=== PATIENT | female | born 1950 | race Caucasian/White ===

== ENCOUNTER 2023-08-02 06:07 | Emergency (ER) | payer MEDICARE ==
[2023-08-02 06:29] VITALS: TEMP 96.3
--- NOTE | 2023-08-02 06:37 | ERPHSYRPT ---
- History of Present Illness Historian: patient, family Exam Limitations: no limitations Patient Subjective Stated Complaint: abd pain Triage Nursing Assessment: patient states that she started having diarrhea this past wednesday. she is now also experiencing vomiting and light headedness Timing/Duration: day(s) (3), worse Quality: sharpness, stabbing Abdominal Pain Onset Location: other (Right side of her abdomen) Pain Radiation: no radiation Severity of Pain-Max: mild Severity of Pain-Current: mild Modifying Factors: Improves With: vomiting, other (Diarrhea, lightheadedness) Associated Symptoms: diarrhea, nausea, vomiting, other (Lightheadedness) Previous symptoms: no prior history, no recent treatment Hx Tetanus, Diphtheria Vaccination/Date Given: Yes Hx Influenza Vaccination/Date Given: Yes Hx Pneumococcal Vaccination/Date Given: Yes Immunizations Up to Date: Yes <JOSELYN NO - Last Filed: 08/02/23 06:42> <OCBY CRUMP - Last Filed: 08/02/23 09:44> - History of Present Illness Time Seen by Provider: 08/02/23 06:30 Physician History: This is an obese 73-year-old white female patient who presents by private vehicle with symptoms of vomiting diarrhea and lightheadedness. She also has right-sided abdominal pain. Patient states that she has no known direct exposure to individuals with similar symptoms. She became concerned when she vomited today, was lightheaded and had pain in the right side of her abdomen. Patient's appendix is still in place. She has had a cholecystectomy and a hysterectomy in the past. She is also had abdominal wall hernia repair. Patient did not receive any relief after taking 2 Imodium, a dose of Pepto- Bismol and a dose of Gas-X. Patient has a history of hypertension, diabetes, hypothyroidism and gastroesophageal reflux disease. She states that she has no chest pain and she has no shortness of breath. Patient does not want anything for controlling her pain at this time. (JOSELYN NO) Allergies/Adverse Reactions: No Known Drug Allergies Allergy (Unverified 08/02/23 06:29) Home Medications: Lansoprazole [Prevacid] 30 mg PO DAILY 05/01/13 [History] Levothyroxine Sodium 150 Mcg [Synthroid 150 Mcg] 150 mcg PO DAILY 05/01/13 [History] Linagliptin [Tradjenta] 5 mg PO DAILY 05/01/13 [History] Losartan/Hydrochlorothiazide [Losartan-Hctz 50-12.5 mg Tab] 1 tab PO DAILY 05/01/13 [History] Metformin HCl 500 mg [Glucophage 500 MG] 500 mg PO BID 05/01/13 [History] Nebivolol HCl [Bystolic] 20 mg PO DAILY 05/01/13 [History] Trazodone HCl [Desyrel] 100 mg PO HS 05/01/13 [History] Travel Risk - International Travel Have you traveled outside of the country in past 3 weeks: No - Emerging Infectious Disease Symptoms: Diarrhea, Vomitting <JOSELYN NO - Last Filed: 08/02/23 06:42> - Review of Systems Constitutional: No Symptoms Eyes: No Symptoms Ears, Nose, & Throat: No Symptoms Respiratory: No Symptoms Cardiac: No Symptoms Abdominal/Gastrointestinal: Abdominal Pain, Nausea, Vomiting, Diarrhea, Appetite Changes Genitourinary Symptoms: No Symptoms Musculoskeletal: No Symptoms Skin: No Symptoms Neurological: Other (Right headedness) Psychological: No Symptoms Endocrine: No Symptoms Hematologic/Lymphatic: No Symptoms Immunological/Allergic: No Symptoms All Other Systems: Reviewed and Negative <JOSELYN NO - Last Filed: 08/02/23 06:42> - Past Medical History Pertinent Past Medical History: Yes Neurological History: No Pertinent History ENT History: No Pertinent History Cardiac History: High Cholesterol, Hypertension Respiratory History: Sleep Apnea Endocrine Medical History: Diabetes Type II, Hypothyroidism Musculoskeletal History: No Pertinent History GI Medical History: No Pertinent History History: No Pertinent History Psycho-Social History: No Pertinent History Female Reproductive Disorders: No Pertinent History - Past Surgical History Past Surgical History: Yes Neuro Surgical History: No Pertinent History Cardiac: Cardiac Catheterization Respiratory: No Pertinent History Gastrointestinal: Cholecystectomy, Hernia Repair Genitourinary: No Pertinent History Musculoskeletal: No Pertinent History Female Surgical History: Hysterectomy Other Surgical History: THYROIDECTOMY - Social History Smoking Status: Never smoker Exposure to second hand smoke: No Drug Use: none Patient Lives Alone: Yes <JOSELYN NO - Last Filed: 08/02/23 06:42> - Physical Exam General Appearance: no apparent distress, alert, anxiety, obese Eye Exam: PERRL/EOMI, eyes nml inspection Ears, Nose, Throat Exam: normal ENT inspection, moist mucous membranes Neck Exam: normal inspection, non-tender, supple, full range of motion Respiratory Exam: normal breath sounds, lungs clear, airway intact, No chest tenderness, No respiratory distress Cardiovascular Exam: regular rate/rhythm, normal heart sounds, normal peripheral pulses Gastrointestinal/Abdomen Exam: soft, normal bowel sounds, tenderness (Mild right side to palpation), guarding (Right side to palpation), No rebound Pelvic Exam: not done Rectal Exam: not done Back Exam: normal inspection, normal range of motion, No CVA tenderness, No vertebral tenderness Extremity Exam: normal inspection, normal range of motion, pelvis stable Neurologic Exam: alert, oriented x 3, cooperative, fuse maker II-XII nml as tested, nml cerebellar function, nml station & gait, sensation nml Skin Exam: normal color, warm, dry Lymphatic Exam: No adenopathy SpO2 Interpretation: borderline oxygenation SpO2: 93 O2 Delivery: Room Air <JOSELYN NO - Last Filed: 08/02/23 06:42> - Nursing Vital Signs Nursing Vital Signs: Initial Vital Signs Temperature 96.3 F 08/02/23 06:20 Pulse Rate 60 08/02/23 06:20 Respiratory Rate 18 08/02/23 06:20 Blood Pressure 160/70 08/02/23 06:20 O2 Sat by Pulse Oximetry 93 L 08/02/23 06:20 Pain Scale Pain Intensity 0 - Course Nursing assessment & vital signs reviewed: Yes <JOSELYN NO - Last Filed: 08/02/23 06:42> Ordered Tests: Active Orders 24 hr Category Date Time Status IV Insertion STAT Care 08/02/23 06:37 Active ABDOMEN AND PELVIS W/0 CONTRAS [CT] Stat Exams 08/02/23 06:37 Completed AMYLASE Stat Lab 08/02/23 06:45 Completed CBC W DIFF Stat Lab 08/02/23 06:45 Completed CMP Stat Lab 08/02/23 06:45 Completed LIPASE Stat Lab 08/02/23 06:45 Completed Lactic Acid Stat Lab 08/02/23 06:58 Completed MONO SCREEN Stat Lab 08/02/23 06:45 Completed UA W/RFX UR CULTURE Stat Lab 08/02/23 08:14 Completed Medication Summary Discontinued Medications Generic Name Dose Route Start Last Admin Trade Name Freq PRN Reason Stop Dose Admin Sodium Chloride 1,000 mls @ 999 mls/hr 08/02/23 06:37 08/02/23 09:21 Sodium Chloride 0.9% 1000 Ml IV 08/02/23 07:37 Infused .Q1H1M STA Infusion Sodium Chloride Confirm 08/02/23 06:44 Sodium Chloride 0.9% 1000 Ml Administered 08/02/23 06:45 Dose 1,000 mls @ ud .ROUTE .STK-MED ONE Ondansetron HCl 4 mg 08/02/23 06:37 08/02/23 06:49 Ondansetron Hcl 4 Mg/2 Ml Vial IV 08/02/23 06:38 4 mg STAT ONE Administration Ondansetron HCl Confirm 08/02/23 06:44 Ondansetron Hcl 4 Mg/2 Ml Vial Administered 08/02/23 06:45 Dose 4 mg .ROUTE .STK-MED ONE Pantoprazole Sodium 40 mg 08/02/23 06:37 08/02/23 06:49 Pantoprazole 40 Mg Vial IV 08/02/23 06:38 40 mg STAT ONE Administration Pantoprazole Sodium Confirm 08/02/23 06:44 Pantoprazole 40 Mg Vial Administered 08/02/23 06:45 Dose 40 mg IV .STK-MED ONE Lab/Rad Data: Laboratory Result Diagrams 08/02/23 06:45 08/02/23 06:45 Laboratory Results 08/02/23 08/02/23 08/02/23 Range/Units 08:40 08:14 06:58 WBC (3.98-10.04) x10^3/uL RBC (3.93-5.22) x10^6/uL Hgb (11.2-15.7) g/dL Hct (34.1-44.9) % MCV (79.4-94.8) fL MCH (25.6-32.2) pg MCHC (32.2-35.5) g/dL RDW (11.7-14.4) % Plt Count (182-369) x10^3/uL MPV (9.4-12.3) fL Gran % (34.0-71.1) % Immature Gran % (Auto) (0.001-0.429) % Nucleat RBC Rel Count (0.00-0.2) % Eos # (Auto) (0.04-0.36) x10^3/uL Immature Gran # (Auto) (0.001-0.031) x10^3u/L Absolute Lymphs (auto) (1.18-3.74) x10^3/uL Absolute Monos (auto) (0.24-0.86) x10^3/uL Absolute Nucleated RBC (0.00-0.012) x10^3u/L Lymphocytes % (19.3-51.7) % Monocytes % (4.7-12.5) % Eosinophils % (0.7-5.8) % Basophils % (0.1-1.2) % Absolute Granulocytes (1.56-6.13) x10^3/uL Basophils # (0.01-0.08) x10^3/uL Sodium (135-145) mmol/L Potassium (3.5-5.1) mmol/L Chloride (98-107) mmol/L Carbon Dioxide (22-30) mmol/L Anion Gap (5-15) MEQ/L BUN (7-17) mg/dL Creatinine (0.52-1.04) mg/dL Estimated GFR ML/MIN Glucose (74-106) mg/dL Lactic Acid 1.5 (0.4-2.0) Calcium (8.4-10.2) mg/dL Total Bilirubin (0.2-1.3) mg/dL AST (14-36) U/L ALT (0-35) U/L Alkaline Phosphatase (38-126) U/L Serum Total Protein (6.3-8.2) g/dL Albumin (3.5-5.0) g/dL Amylase (30-110) U/L Lipase (23-300) U/L Urine Color Yellow (Yellow) Urine Appearance Clear (Clear) Urine pH 5.5 (4.6-8.0) Ur Specific [place] 1.015 (1.005-1.030) Urine Protein 30 (Negative) Urine Glucose (UA) >=1000 A (Negative) mg/dL Urine Ketones Negative (Negative) Urine Blood Negative (Negative) Urine Nitrite Negative (Negative) Urine Bilirubin Negative (Negative) Urine Urobilinogen 1.0 A (0.2) mg/dL Ur Leukocyte Esterase Negative (Negative) U Hyaline Cast (Auto) NONE SEEN (0-2) /LPF Urine Microscopic RBC 0-2 (0-5) /HPF Urine Microscopic WBC 0-2 (0-5) /HPF Ur Epithelial Cells None Seen (None Seen) /HPF Urine Bacteria None Seen (None Seen) /HPF Urine Culture Reflexed NO (NO) Monoscreen (NEGATIVE) Influenza Type A Ag NEGATIVE (NEGATIVE) Influenza Type B Ag NEGATIVE (NEGATIVE) RSV (PCR) NEGATIVE (NEGATIVE) SARS-CoV-2 (PCR) NEGATIVE (NEGATIVE) 08/02/23 08/02/23 08/02/23 Range/Units 06:50 06:45 06:45 WBC (3.98-10.04) x10^3/uL RBC (3.93-5.22) x10^6/uL Hgb (11.2-15.7) g/dL Hct (34.1-44.9) % MCV (79.4-94.8) fL MCH (25.6-32.2) pg MCHC (32.2-35.5) g/dL RDW (11.7-14.4) % Plt Count (182-369) x10^3/uL MPV (9.4-12.3) fL Gran % (34.0-71.1) % Immature Gran % (Auto) (0.001-0.429) % Nucleat RBC Rel Count (0.00-0.2) % Eos # (Auto) (0.04-0.36) x10^3/uL Immature Gran # (Auto) (0.001-0.031) x10^3u/L Absolute Lymphs (auto) (1.18-3.74) x10^3/uL Absolute Monos (auto) (0.24-0.86) x10^3/uL Absolute Nucleated RBC (0.00-0.012) x10^3u/L Lymphocytes % (19.3-51.7) % Monocytes % (4.7-12.5) % Eosinophils % (0.7-5.8) % Basophils % (0.1-1.2) % Absolute Granulocytes (1.56-6.13) x10^3/uL Basophils # (0.01-0.08) x10^3/uL Sodium 142 (135-145) mmol/L Potassium 3.1 L (3.5-5.1) mmol/L Chloride 106 (98-107) mmol/L Carbon Dioxide 21 L (22-30) mmol/L Anion Gap 17.8 H (5-15) MEQ/L BUN 14 (7-17) mg/dL Creatinine 0.66 (0.52-1.04) mg/dL Estimated GFR 91.4 ML/MIN Glucose 144 H (74-106) mg/dL Lactic Acid (0.4-2.0) Calcium 9.4 (8.4-10.2) mg/dL Total Bilirubin 1.40 H (0.2-1.3) mg/dL AST 41 H (14-36) U/L ALT 34 (0-35) U/L Alkaline Phosphatase 82 (38-126) U/L Serum Total Protein 7.9 (6.3-8.2) g/dL Albumin 4.5 (3.5-5.0) g/dL Amylase 240 H (30-110) U/L Lipase 2289 H (23-300) U/L Urine Color (Yellow) Urine Appearance (Clear) Urine pH (4.6-8.0) Ur Specific [place] (1.005-1.030) Urine Protein (Negative) Urine Glucose (UA) (Negative) mg/dL Urine Ketones (Negative) Urine Blood (Negative) Urine Nitrite (Negative) Urine Bilirubin (Negative) Urine Urobilinogen (0.2) mg/dL Ur Leukocyte Esterase (Negative) U Hyaline Cast (Auto) (0-2) /LPF Urine Microscopic RBC (0-5) /HPF Urine Microscopic WBC (0-5) /HPF Ur Epithelial Cells (None Seen) /HPF Urine Bacteria (None Seen) /HPF Urine Culture Reflexed (NO) Monoscreen NEGATIVE (NEGATIVE) Influenza Type A Ag NEGATIVE (NEGATIVE) Influenza Type B Ag NEGATIVE (NEGATIVE) RSV (PCR) NEGATIVE (NEGATIVE) SARS-CoV-2 (PCR) NEGATIVE (NEGATIVE) 08/02/23 Range/Units 06:45 WBC 10.2 H (3.98-10.04) x10^3/uL RBC 5.72 H (3.93-5.22) x10^6/uL Hgb 15.2 (11.2-15.7) g/dL Hct 46.6 H (34.1-44.9) % MCV 81.5 (79.4-94.8) fL MCH 26.6 (25.6-32.2) pg MCHC 32.6 (32.2-35.5) g/dL RDW 14.5 H (11.7-14.4) % Plt Count 276 (182-369) x10^3/uL MPV 9.6 (9.4-12.3) fL Gran % 84.1 H (34.0-71.1) % Immature Gran % (Auto) 0.4 (0.001-0.429) % Nucleat RBC Rel Count 0.0 (0.00-0.2) % Eos # (Auto) 0.07 (0.04-0.36) x10^3/uL Immature Gran # (Auto) 0.04 H (0.001-0.031) x10^3u/L Absolute Lymphs (auto) 1.01 L (1.18-3.74) x10^3/uL Absolute Monos (auto) 0.48 (0.24-0.86) x10^3/uL Absolute Nucleated RBC 0.00 (0.00-0.012) x10^3u/L Lymphocytes % 9.9 L (19.3-51.7) % Monocytes % 4.7 (4.7-12.5) % Eosinophils % 0.7 (0.7-5.8) % Basophils % 0.2 (0.1-1.2) % Absolute Granulocytes 8.55 H (1.56-6.13) x10^3/uL Basophils # 0.02 (0.01-0.08) x10^3/uL Sodium (135-145) mmol/L Potassium (3.5-5.1) mmol/L Chloride (98-107) mmol/L Carbon Dioxide (22-30) mmol/L Anion Gap (5-15) MEQ/L BUN (7-17) mg/dL Creatinine (0.52-1.04) mg/dL Estimated GFR ML/MIN Glucose (74-106) mg/dL Lactic Acid (0.4-2.0) Calcium (8.4-10.2) mg/dL Total Bilirubin (0.2-1.3) mg/dL AST (14-36) U/L ALT (0-35) U/L Alkaline Phosphatase (38-126) U/L Serum Total Protein (6.3-8.2) g/dL Albumin (3.5-5.0) g/dL Amylase (30-110) U/L Lipase (23-300) U/L Urine Color (Yellow) Urine Appearance (Clear) Urine pH (4.6-8.0) Ur Specific [place] (1.005-1.030) Urine Protein (Negative) Urine Glucose (UA) (Negative) mg/dL Urine Ketones (Negative) Urine Blood (Negative) Urine Nitrite (Negative) Urine Bilirubin (Negative) Urine Urobilinogen (0.2) mg/dL Ur Leukocyte Esterase (Negative) U Hyaline Cast (Auto) (0-2) /LPF Urine Microscopic RBC (0-5) /HPF Urine Microscopic WBC (0-5) /HPF Ur Epithelial Cells (None Seen) /HPF Urine Bacteria (None Seen) /HPF Urine Culture Reflexed (NO) Monoscreen (NEGATIVE) Influenza Type A Ag (NEGATIVE) Influenza Type B Ag (NEGATIVE) RSV (PCR) (NEGATIVE) SARS-CoV-2 (PCR) (NEGATIVE) <JOSELYN NO - Last Filed: 08/02/23 06:42> - Progress Discussed with : Other Counseled pt/family regarding: lab results, diagnosis, rad results <COBY CRUMP - Last Filed: 08/02/23 09:44> - Progress Progress Note: 08/02/23 06:45 My medical decision making and the assignment of moderate complexity of this patient's medical issue today is based on review of the patient's past medical history, review of the patient's medication list, review of patient drug allergy list, history present illness and physical findings on examination. The workup in this patient includes placement of intravenous line, infusion of normal saline solution, infusion of Zofran, infusion of Protonix, CBC, CMP, amylase, lipase, urinalysis, CT scan of the abdomen pelvis without contrast, viral studies and monotest. The differential diagnosis includes but is not limited to viral illness, pancreatitis, colitis, diverticulitis, acute appendicitis I am transferring care of this patient to Dr. Crump at shift change. He will follow-up with the pending studies and make final disposition. (JOSELYN NO) 08/02/23 08:07 Assumed care at shift change from Dr. No Patient who has been having diarrhea x 3 days and nausea/vomiting since last night. Patient has right lateral abdominal pain which she rates 4 out of 10 and described as sharp. Past medical history includes cholecystectomy, total abdominal hysterectomy/bilateral salpingo-oophorectomy, diabetes mellitus, hypertension, and hypothyroidism. Patient has elevation of her pancreatic enzymes and CT of her abdomen pelvis is pending at shift change.Workup completed, patient has a small bowel obstruction and pancreatitis. Spoke with, Dr. Petit who wants patient transferred. Patient accepted by Dr. Correa, hospitalist at [facility] in [place]. Dr. Correa okay with not putting in NG tube at this time. 08/02/23 09:15 08/02/23 09:42 (COBY CRUMP) Medical Desision Making - Discussion of managment Care discussed with:: hospitalist Reviewed:: Need for additional workup - Diagnostic Testing Diagnostic test were ordered, analyzed, and reviewed by me: Yes Radiological Interpretation: Discussed w/ radiologist - Risk of complications The pt has a high risk of morbidity or mortality based on: Decision regarding hospitilization or escalation of hosp level of care <COBY CRUMP - Last Filed: 08/02/23 09:44> - Departure Departure Disposition: Home Critical Care Time: No <JOSELYN NO - Last Filed: 08/02/23 06:42> - Departure Departure Disposition: Transfer <COBY CRUMP - Last Filed: 08/02/23 09:44> - Departure Clinical Impression: Abdominal pain, Vomiting, Diarrhea, Pancreatitis, Small bowel obstruction Condition: Stable Referrals: DIA HESTER [Primary Care Provider] - Follow up/PCP as directed
[2023-08-02] MEDS ORDERED: Sodium Chloride 0.9% 1000 ML 1,000 ML ONE (06:44)
[2023-08-02] MEDS ORDERED: Zofran 4 MG/2 ML VIAL ONE (06:44)
[2023-08-02] MEDS ORDERED: PROTONIX 40 MG IV IV ONE (06:44)
[2023-08-02] MEDS: Sodium Chloride 0.9% 1000 ML 1,000 ML IV STA (06:49)
[2023-08-02] MEDS: Zofran 4 MG/2 ML VIAL IV ONE (06:49)
[2023-08-02] MEDS: PROTONIX 40 MG IV IV ONE (06:49)
[2023-08-02 06:54] LABS: Absolute Neutrophil Ct (ANC) 8.55 x10^3/uL (1.56-6.13); BASOPHIL % 0.2 % (0.1-1.2); Basophil (Absolute #) 0.02 x10^3/uL (0.01-0.08); Eosinophil % 0.7 % (0.7-5.8); Eosinophil (Absolute #) 0.07 x10^3/uL (0.04-0.36); Hematocrit 46.6 % (34.1-44.9); Hemoglobin 15.2 g/dL (11.2-15.7); IMMATURE GRAN # 0.04 x10^3u/L (0.001-0.031); IMMATURE GRAN % 0.4 % (0.001-0.429); Lymphocyte (Absolute #) 1.01 x10^3/uL (1.18-3.74); Lymphocytes % 9.9 % (19.3-51.7); Mean Cell Volume 81.5 fL (79.4-94.8); Mean Corpuscular Hemoglobin 26.6 pg (25.6-32.2); Mean Corpuscular Hgb Concent. 32.6 g/dL (32.2-35.5); Mean Platelet Volume 9.6 fL (9.4-12.3); Monocyte (Absolute #) 0.48 x10^3/uL (0.24-0.86); Monocytes % 4.7 % (4.7-12.5); Neutrophil % 84.1 % (34.0-71.1); Platelet Count 276 x10^3/uL (182-369); Red Blood Count 5.72 x10^6/uL (3.93-5.22); Red Cell Distribution Width 14.5 % (11.7-14.4); White Blood Count 10.2 x10^3/uL (3.98-10.04)
[2023-08-02 07:10] LABS: ALBUMIN 4.5 g/dL (3.5-5.0); ANION GAP 17.8 MEQ/L (5-15); BILIRUBIN,TOTAL 1.4 mg/dL (0.2-1.3); Calcium 9.4 mg/dL (8.4-10.2); Creatinine 1 0.66 mg/dL (0.52-1.04); EST GLOMERULAR FILTRATION RATE 91.4 ML/MIN; Potassium 3.1 mmol/L (3.5-5.1); Total Protein 7.9 g/dL (6.3-8.2)
[2023-08-02 07:18] VITALS: PULSE 54; RESP 16
[2023-08-02 07:30] LABS: INFLUENZA A NEGATIVE (NEGATIVE); INFLUENZA B NEGATIVE (NEGATIVE); RESPIRATORY SYNCTIAL VIRUS NEGATIVE (NEGATIVE); SARS-CoV-2 Xpert Express NEGATIVE (NEGATIVE)
[2023-08-02 08:27] LABS: Appearance Clear (Clear); Bacteria None Seen /HPF (None Seen); Bilirubin Negative (Negative); Blood Negative (Negative); Epithelial Cells None Seen /HPF (None Seen); Glucose, Urine >=1000 mg/dL (Negative); Hyaline Casts NONE SEEN /LPF (0-2); Ketones Negative (Negative); Leukocyte Esterase Negative (Negative); Nitrite Negative (Negative); Ph 5.5 (4.6-8.0); Protein,Urine Dip 30 (Negative); RBC 0-2 /HPF (0-5); Specific Gravity 1.015 (1.005-1.030); WBC 0-2 /HPF (0-5)
[2023-08-02 08:37] LABS: ADD URINE CULTURE? NO (NO)
--- NOTE | 2023-08-02 08:57 | XRAY ---
Indication: Nausea, vomiting, and diarrhea. Multiple contiguous axial images obtained through the abdomen and pelvis without contrast. Impression: None Lung bases clear. Heart not enlarged. Small hiatal hernia with small gastroesophageal reflux. Stomach is mildly fluid distended. Right mid abdomen demonstrates air distended small bowel loop up to 7.5 cm diameter with tapering. There is distal colonic bowel gas. Findings favor partial small bowel obstruction. Mild fluid distended colon throughout including rectum with fluid leveling favoring diarrhea. No free fluid/air. [place] ventral umbilical hernia up to 6.5 cm in diameter with a loop of small bowel herniating. No obstruction/incarceration. Previous cholecystectomy and hysterectomy. Remaining liver, pancreas, spleen, adrenal glands, kidneys, ureters, and bladder are unremarkable for noncontrast exam. Mild scattered aortoiliac calcifications without AAA. Osseous structures intact with osteopenia, moderate degenerative changes throughout the thoracolumbar spine, and moderate degenerative changes both hips. Impression: 1. Abnormal distended small bowel loop right midabdomen with paucity distal bowel gas favoring partial small bowel obstruction. 2. Diffuse colonic diarrhea. 3. Small hiatal hernia with GERD. 4. Chronic findings including arteriosclerotic disease and chronic bony findings.
[2023-08-02 09:15] VITALS: BP 122/64; O2SAT 93
[2023-08-02 09:23] LABS: INFLUENZA A NEGATIVE (NEGATIVE); INFLUENZA B NEGATIVE (NEGATIVE); RESPIRATORY SYNCTIAL VIRUS NEGATIVE (NEGATIVE); SARS-CoV-2 Xpert Express NEGATIVE (NEGATIVE)
== END 2023-08-02 10:46 | disposition short-term general hospital (02) ==
LOC: ED 06:07
DX: K56.609 Unspecified intestinal obstruction, unspecified as to partial versus complete obstruction (principal); K85.90 Acute pancreatitis without necrosis or infection, unspecified; R10.9 Unspecified abdominal pain; R11.2 Nausea with vomiting, unspecified; R19.7 Diarrhea, unspecified; R42 Dizziness and giddiness; I10 Essential (primary) hypertension; E11.9 Type 2 diabetes mellitus without complications; E78.5 Hyperlipidemia, unspecified; Z79.84 Long term (current) use of oral hypoglycemic drugs; Z79.899 Other long term (current) drug therapy
CPT/HCPCS: 0241U; 36000; 36415; 74176; 80053; 81001; 82150; 83605; 83690; 85025; 86308; 96360; 96374; 96375; 99285; J2405

== ENCOUNTER 2023-10-07 08:46 | Emergency (ER) | payer MEDICARE ==
[2023-10-07 09:08] VITALS: TEMP 98.8
--- NOTE | 2023-10-07 09:34 | ERPHSYRPT ---
- History of Present Illness Time Seen by Provider: 10/07/23 09:10 Source: patient Exam Limitations: no limitations Patient Subjective Stated Complaint: Fall just prior to coming into the ER today. C/O right hip pain, headache, pain encircling around bra line. Patient did hit her head. She did not lose conciousness. Triage Nursing Assessment: Patient brought back to ER in a W/C. She was able to transfer self from chair to bed without difficulties. She is alert and oriented. LUE noted to be slightly shorter than right; patient states this is normal for her. Denies left hip pain but c/o right hip pain. Physician History: 73-year-old female with history of hypertension, hyperlipidemia, diabetes mellitus, hypothyroidism presented in the ER after she was walking at the school hallway, tripped on an uneven surface with a fall on right hip. Also did hit her head against the floor. Complaining of minimal headache currently but was moderate earlier. Has not taken anything for pain. Denies any neck pain. No loss of consciousness. Denies having numbness tingling focal weakness or visual disturbance. Patient denies any chest pain palpitations, feeling dizzy lightheaded before or after the fall. Has pain with movements of right hip but able to have weightbearing. Also complaining of mild pain along the right bra line. No difficulty breathing. Allergies/Adverse Reactions: No Known Drug Allergies Allergy (Verified 10/07/23 08:59) Home Medications: Alpha Lipoic Acid 600 mg PO DAILY 10/07/23 [History] Aspirin EC 81 mg [Ecotrin 81 mg] 81 mg PO DAILY 10/07/23 [History] Atorvastatin Calcium [Lipitor] 20 mg PO DAILY 10/07/23 [History] Duloxetine HCl 30 mg [Cymbalta 30 MG Capsule] 30 mg PO DAILY 10/07/23 [History] Empagliflozin [Jardiance] 25 mg PO DAILY 10/07/23 [History] Ergocalciferol (Vitamin D2) [Vitamin D2] 1.25 mg PO WEEKLY 10/07/23 [History] Fluoxetine HCl 40 mg PO DAILY 10/07/23 [History] Gabapentin [Neurontin ] 300 mg PO BID 10/07/23 [History] Lansoprazole [Prevacid] 30 mg PO DAILY 10/07/23 [History] Levothyroxine Sodium 112 Mcg [Synthroid 112 Mcg] 112 mcg PO DAILY 10/07/23 [History] Meloxicam 7.5 mg PO DAILY 10/07/23 [History] Metoprolol Succinate 50 mg [Toprol Xl 50 MG] 50 mg PO DAILY 10/07/23 [History] Multivitamin/Iron/Folic Acid [Centrum Women Tablet] 1 tab PO DAILY 10/07/23 [History] [place]-3 Fatty Acids [[place]-3] 2,000 mg PO BID 10/07/23 [History] Potassium Chloride 10 mg PO DAILY 10/07/23 [History] Ropinirole HCl 1 mg PO TID 10/07/23 [History] Semaglutide [Rybelsus] 14 mg PO DAILY 10/07/23 [History] Tirzepatide [Mounjaro] 15 mg SQ WEEKLY 10/07/23 [History] Tolterodine Tartrate [Tolterodine Tartrate ER] 2 mg PO DAILY 10/07/23 [History] Vitamin B Complex [B Complex] 1 tab PO DAILY 10/07/23 [History] Vitamin E 400 Units [Vitamin E 400 UNIT SOFTGEL] 180 mg PO BID 10/07/23 [History] Hx Tetanus, Diphtheria Vaccination/Date Given: Yes Hx Influenza Vaccination/Date Given: Yes Hx Pneumococcal Vaccination/Date Given: Yes Immunizations Up to Date: Yes Travel Risk - International Travel Have you traveled outside of the country in past 3 weeks: No - Emerging Infectious Disease Are you exhibiting symptoms associated with any current EIDs: No Symptoms: Diarrhea, Vomitting - Review of Systems Constitutional: No Symptoms Eyes: No Symptoms Ears, Nose, & Throat: No Symptoms Respiratory: No Symptoms Cardiac: Chest Pain Abdominal/Gastrointestinal: No Symptoms Genitourinary Symptoms: No Symptoms Musculoskeletal: Fall, Injury, Joint Pain Skin: No Symptoms Neurological: Headache Endocrine: No Symptoms Hematologic/Lymphatic: No Symptoms - Past Medical History Pertinent Past Medical History: Yes Neurological History: Peripheral Neuropathy ENT History: No Pertinent History Cardiac History: High Cholesterol, Hypertension Respiratory History: Sleep Apnea Endocrine Medical History: Diabetes Type II, Hypothyroidism Musculoskeletal History: No Pertinent History GI Medical History: Gallbladder Disease, Hernia History: No Pertinent History Psycho-Social History: No Pertinent History Female Reproductive Disorders: No Pertinent History Other Medical History: RLS - Past Surgical History Past Surgical History: Yes Neuro Surgical History: No Pertinent History Cardiac: Cardiac Catheterization Respiratory: No Pertinent History Gastrointestinal: Cholecystectomy, Hernia Repair Genitourinary: No Pertinent History Musculoskeletal: No Pertinent History Female Surgical History: Hysterectomy Other Surgical History: THYROIDECTOMY - Social History Smoking Status: Never smoker Exposure to second hand smoke: No Drug Use: none Patient Lives Alone: Yes - Social Determinants of Health Will the patient participate in the screening: Yes Do you worry about a steady place to live?: No Do you have any problems with any of the following?: No known problems In the past 12 months,have you had to go without utilities?: No Transportation Issues: No Has anyone in your support network made you feel unsafe?: No Have you or anyone in your house had to go without enough: No - Nursing Vital Signs Nursing Vital Signs: Initial Vital Signs Temperature 98.8 F 10/07/23 09:00 Pulse Rate 64 10/07/23 09:00 Respiratory Rate 24 10/07/23 09:00 Blood Pressure 168/64 10/07/23 09:00 O2 Sat by Pulse Oximetry 97 10/07/23 09:00 Pain Scale Pain Intensity 0 - Sydni Coma Score Best Eye Response (Sydni): (4) open spontaneously Best Verbal Response (Sydni): (5) oriented Best Motor Response (Sydni): (6) obeys commands Sydni Total: 15 - Physical Exam General Appearance: no apparent distress, alert Head Injury: no evidence of injury Eye Exam: PERRL/EOMI, eyes nml inspection ENT Exam: airway nml, nml ext.inspection, No evidence of ENT injury, No dental injury Neck Exam: supple, trachea midline, full range of motion, normal alignment Respiratory/Chest Exam: normal breath sounds, No chest tenderness, No respiratory distress Cardiovascular Exam: normal heart sounds, regular rate/rhythm Gastrointestinal Exam: soft, normal bowel sounds, No tenderness Back Exam: normal inspection, normal range of motion, CVA tenderness, No vertebral tenderness Extremity Exam: normal inspection, normal range of motion Neurologic Exam: alert, oriented x 3, cooperative, lead net software developer II-XII nml as tested, nml cerebellar function, sensation nml, motor deficits Skin Exam: normal color SpO2 Interpretation: normal SpO2: 96 O2 Delivery: Room Air Ordered Tests: Active Orders 24 hr Category Date Time Status CERVICAL SPINE WO CONTRAST [CT] Stat Exams 10/07/23 09:32 Completed CHEST 1 VIEW (PORTABLE) Stat Exams 10/07/23 09:33 Completed HEAD WITHOUT CONTRAST [CT] Stat Exams 10/07/23 09:32 Completed HIP UNI (2V) INCL PEL IF DONE Stat Exams 10/07/23 09:33 Completed - Progress Progress: improved Progress Note: 10/07/23 13:16 73-year-old is evaluated in the ER for ground-level fall which is mechanical after she tripped. Patient has nonfocal neuroexam throughout stay in the ER. Complaining of mild headache but does not want any symptomatic treatment. Chest x-ray is negative. CT head showed tiny pneumocephalus with no skull fracture or any other acute intracranial findings. CT cervical spine is negative for any acute trauma related findings. Patient neuroexam remained nonfocal. I have discussed with Dr. Margarette chaudhry who has seen patient and do not think patient needs any further workup or transfer as it usually resolves on its own. Patient has no history of any recent spinal procedure done which he thinks is probably secondary to today's fall with some headache suggesting concussion. Recommended outpatient follow-up with neurology and repeating CT in 1 week to see if it is resolved. I have shared the results of workup with patient and family, recommendations of neurology and outpatient follow-up which the seem understanding. Stable for discharge. Discussed with Dr.: Other (Dr. Pfeiffer [facility]) Counseled pt/family regarding: diagnosis, need for follow-up, rad results Medical Desision Making - Independent Historian Additional History obtained from: Family - Discussion of managment Care discussed with:: specialist ([facility]y Dr. Lisa) Reviewed:: Test results Agreed on:: Treatment plan, need for follow-up Will see patient: in ED - Diagnostic Testing Diagnostic test were ordered, analyzed, and reviewed by me: Yes Radiological Interpretation: Reviewed by me - Departure Departure Disposition: Home Clinical Impression: Concussion, Fall from ground level Condition: Stable Critical Care Time: No Referrals: DIA HSETER [Primary Care Provider] - Follow up with PCP 1 day FLORENCE HURST [NON-STAFF PHY W/O PRIVILEGES] - Follow up/PCP as directed (Call for appointment for reevaluation) Instructions: Concussion, Adult ED, Head injury observation in adults Additional Instructions: Take Tylenol as needed. Follow-up with primary care for reevaluation and repeat CT head in 1 week to see if tiny amount of air is resolved. Also follow-up with neurology. Return to ER for intractable headache, numbness tingling focal weakness, visual disturbance or if having difficulty speech etc.
--- NOTE | 2023-10-07 10:49 | XRAY ---
Indication: Head injury following fall. Multiple contiguous axial images obtained through the head without contrast. Comparison: None Age-appropriate global atrophy and minimal periventricular degenerative micro-ischemia. Tiny pneumocephalus, greatest centered around sella turcica. No acute intracranial hemorrhage, abnormal extra-axial fluid collection, or mass effect. Fourth ventricle is midline without hydrocephalus. Pugh-white matter differentiation preserved. Bony calvarium intact. Minimal mucosal thickening both ethmoid and both maxillary sinuses. Mastoid air cells are clear. Impression: 1. No acute intracranial hemorrhage or fracture. 2. Tiny pneumocephalus. Query recent spinal tap?
--- NOTE | 2023-10-07 10:51 | XRAY ---
Indication: Head injury following fall. Multiple contiguous axial images obtained through the cervical spine. Sagittal and coronal reformatted images obtained. Comparison: None Osseous structures demineralized. Axial images negative for acute fracture, suspicious bony lesions, or spinal canal stenosis. Mild/moderate C3-C7 degenerative endplate spurring and multilevel degenerative facet hypertrophy left greater than right. Sagittal and coronal reformatted images emesis normal alignment with C3-C7 disc space narrowing. No acute compression fracture, subluxation, or jumped facet. Normal appearing cranial cervical junction. Visualized noncontrasted soft tissues demonstrate mild bilateral carotid calcifications and thyroidectomy. Lung apices clear. CT head reported separately. Impression: 1. Negative acute fracture/subluxation. 2. Chronic findings including osteopenia and multilevel degenerative spondylosis.
--- NOTE | 2023-10-07 10:51 | XRAY ---
Indication: Status post fall. Comparison: May 01, 2013 Portable chest again demonstrates normal heart and lungs. Bony thorax intact again with osteopenia and degenerative changes. No new/acute findings.
--- NOTE | 2023-10-07 10:53 | XRAY ---
Indication: Status post fall. Comparison: None AP pelvis and 2 view right hip demonstrates osteopenia, moderate degenerative changes visualized lumbar spine, pubis symphysis osteitis, tiny spurring lesser/greater trochanters bilaterally, and moderate scattered vascular calcifications. No other bony, articular, or soft tissue abnormalities.
[2023-10-07 12:47] VITALS: O2SAT 96
[2023-10-07 13:13] VITALS: BP 157/65; PULSE 64; RESP 26
== END 2023-10-07 13:35 | disposition home or self-care (01) ==
LOC: ED 08:46
DX: S06.0X0A Concussion without loss of consciousness, initial encounter (principal); W01.10XA Fall on same level from slipping, tripping and stumbling with subsequent striking against unspecified object, initial encounter; Y93.01 Activity, walking, marching and hiking; M25.551 Pain in right hip; E78.5 Hyperlipidemia, unspecified; I10 Essential (primary) hypertension; E11.42 Type 2 diabetes mellitus with diabetic polyneuropathy; Z79.84 Long term (current) use of oral hypoglycemic drugs; Z79.85 Long-term (current) use of injectable non-insulin antidiabetic drugs; Z79.899 Other long term (current) drug therapy
CPT/HCPCS: 70450; 71045; 72125; 73502; 99283